=== PATIENT | male | born 1980 | race Caucasian/White ===

== ENCOUNTER 2018-02-17 15:35 | Emergency (ER) | payer OTHER ==
[2018-02-17 17:07] LABS: #Basophils 0.1 thou/uL (0.0-0.2); #Eosinphils 0.1 thou/uL (0.0-0.7); #Lymphocytes 2.4 thou/uL (1.20-3.40); #Monocytes 0.3 thou/uL (0.11-0.59); #Neutrophils 2.5 thou/uL (1.40-6.50); %Basophils 1.5 % (0.0-1.0); %Eosinophils 2.1 % (0.0-10.0); %Lymphocytes 44.8 % (21.0-51.0); %Monocytes 6.1 % (0.0-10.0); %Neutrophils 45.5 % (42.0-75.0); Hemoglobin 14.7 g/dL (14.0-18.0); Mean Corpuscular HGB CONC 35.8 g/dL (32.0-36.0); Mean Corpuscular Hemoglobin 33.7 pg (27.0-31.0); Mean Corpuscular Volume 94.3 fl (80.0-94.0); Platelet Count 146 thou/uL (130-400); RBC Distribution Width 10.8 % (11.5-14.5); Red Blood Cell (RBC) Count 4.36 mill/uL (4.70-6.10); White Blood Cell (WBC) Count 5.4 thou/uL (4.8-10.8)
[2018-02-17] MEDS ORDERED: Ketorolac Tromethamine 30 MG/ML VIAL ONE ×2 (17:26→17:27)
[2018-02-17 17:27] LABS: Anion Gap 20 mmol/L (10-20); BUN (Urea Nitrogen) Less than 4 mg/dL (8.9-20.6); Calc. Creatinine Clearance 0 mL/min (70-130); Calcium 8.8 mg/dL (7.8-10.44); Carbon Dioxide 20 mmol/L (22-29); Chloride 102 mmol/L (98-107); Estimated GFR-MDRD Greater than 90; Glucose 316 mg/dL (70-105); Potassium 3.9 mmol/L (3.5-5.1); Sodium 138 mmol/L (136-145)
[2018-02-17 17:33] LABS: Troponin I Less than 0.010 ng/mL (< 0.028)
--- NOTE | 2018-02-17 17:42 | RAD ---
PORTABLE AP CHEST X-RAY: 02/17/2018 HISTORY: Chest pain. COMPARISON: None available. FINDINGS: The cardiac silhouette and pulmonary vasculature are within normal limits. The lungs are clear. The osseous structures are intact. IMPRESSION: No acute cardiopulmonary process. POS: [facility]
[2018-02-17] MEDS ORDERED: Methocarbamol 500 MG TAB PO SCH (17:45)
== END 2018-02-17 18:57 | disposition home or self-care (01) ==
LOC: ERS 15:35
DX: M62.830 Muscle spasm of back (principal); F41.9 Anxiety disorder, unspecified; M19.90 Unspecified osteoarthritis, unspecified site; E11.9 Type 2 diabetes mellitus without complications; I10 Essential (primary) hypertension; Z79.84 Long term (current) use of oral hypoglycemic drugs; Z79.899 Other long term (current) drug therapy
CPT/HCPCS: 36415; 71045; 80048; 82553; 84484; 85025; 93005; 96372; J1885

== ENCOUNTER 2018-05-16 13:29 | Outpatient (CLI) | payer OTHER | END 2018-05-16 13:30 | disposition home or self-care (01) | LOC: BICRAD 13:29 | PROVIDERS: ATTEND Orthopaedic Surgery | DX: M19.90 Unspecified osteoarthritis, unspecified site (principal); M19.041 Primary osteoarthritis, right hand ==

== ENCOUNTER 2018-10-14 04:37 | Emergency (ER) | payer OTHER ==
[2018-10-14] MEDS ORDERED: Ketorolac Tromethamine 60 MG/2 ML VIAL ONE (05:48)
== END 2018-10-14 05:54 | disposition home or self-care (01) ==
LOC: ERS 04:37
DX: G89.29 Other chronic pain (principal); M54.5 Low back pain; E11.9 Type 2 diabetes mellitus without complications; I10 Essential (primary) hypertension; Z79.84 Long term (current) use of oral hypoglycemic drugs; Z79.899 Other long term (current) drug therapy
CPT/HCPCS: 96372; J1885

== ENCOUNTER 2019-05-07 01:45 | Emergency (ER) | payer OTHER ==
[2019-05-07] MEDS ORDERED: Ondansetron ODT 4 MG TAB ONE (01:52)
[2019-05-07 02:18] LABS: #Basophils 0.1 thou/uL (0.0-0.2); #Eosinphils 0.1 thou/uL (0.0-0.7); #Lymphocytes 2.6 thou/uL (1.20-3.40); #Monocytes 0.9 thou/uL (0.11-0.59); #Neutrophils 7.1 thou/uL (1.40-6.50); %Basophils 0.8 % (0.0-1.0); %Eosinophils 0.5 % (0.0-10.0); %Lymphocytes 24.4 % (21.0-51.0); %Monocytes 8.6 % (0.0-10.0); %Neutrophils 65.7 % (42.0-75.0); Mean Corpuscular HGB CONC 32.7 g/dL (32.0-36.0); Mean Corpuscular Hemoglobin 32.7 pg (27.0-31.0); Platelet Count 195 thou/uL (130-400); RBC Distribution Width 11.9 % (11.5-14.5); White Blood Cell (WBC) Count 10.8 thou/uL (4.8-10.8)
[2019-05-07] MEDS ORDERED: Pantoprazole 40 MG VIAL ONE (02:23)
[2019-05-07] MEDS ORDERED: Ondansetron PF 4 MG/2 ML Vial ONE (02:23)
[2019-05-07 02:53] LABS: ALT (SGPT) 116 U/L (8-55); AST (SGOT) 224 U/L (5-34); Albumin 4.3 g/dL (3.5-5.0); Alkaline Phosphatase 251 U/L (40-150); Anion Gap 28 mmol/L (10-20); BUN (Urea Nitrogen) 5 mg/dL (8.9-20.6); Calc. Creatinine Clearance 0 mL/min (70-130); Calcium 10.5 mg/dL (7.8-10.44); Carbon Dioxide 20 mmol/L (22-29); Chloride 94 mmol/L (98-107); Estimated GFR-MDRD 87; Globulin 5.1 g/dL (2.4-3.5); Glucose 420 mg/dL (70-105); Potassium 3.9 mmol/L (3.5-5.1); Protein, Total 9.4 g/dL (6.0-8.3); Sodium 138 mmol/L (136-145)
[2019-05-07] MEDS ORDERED: Lorazepam 2 MG/ML VIAL ONE (06:51)
--- NOTE | 2019-05-07 07:01 | CT ---
CT ABDOMEN AND PELVIS WITH CONTRAST: Date: 05/07/19 No prior comparison. CLINICAL INDICATION: New onset nausea, vomiting, and abdominal pain. FINDINGS: Mild volume loss is seen at the lung bases. There is a mild nodular contour of the liver. The spleen is mildly enlarged, greater than 14 cm in length. No peripancreatic inflammatory fat stranding or nino ma identified. Moderate distention of the gallbladder is seen, with a slight degree of relative incre ased density at the level of the gallbladder neck, incompletely evaluated. The adrenal glands and kid neys are unremarkable. Moderate retained fecal material in the colon is seen. There is a slight degre e of wall prominence of the unopacified right hemicolon. The unopacified small bowel is not dilated. There is moderate distention of the urinary bladder. No free air or significant ascites. Recanalizati on of the umbilical vein noted. The osseous structures are intact. IMPRESSION: 1. There is moderate distention of the gallbladder with slight internal increased density. Consider gallbladder ultrasound for further evaluation. 2. Findings which indicate a mildly cirrhotic morphology of the liver. There is probable hepatic laurie atosis as well. Borderline splenomegaly and recanalized umbilical vein relate to associated changes o f portal hypertension. Recommend clinical correlation in this regard. Follow-up with gastroenterology consultation would prove useful. 3. Mild wall prominence of the right hemicolon, nonspecific and incompletely evaluated as the bowel is not contrast opacified. Recommend clinical correlation to exclude symptoms of colitis. Clinical fo llow-up also suggested to confirm resolution. POS: [facility]
--- NOTE | 2019-05-07 07:04 | ULT ---
GALLBLADDER ULTRASOUND: Date: 05/07/19 INDICATION: New onset nausea and vomiting, pain. FINDINGS: There is a prominent sized liver with increased hepatic echotexture which can be seen in the setting of fatty infiltration. There are a few dependent low level echoes of the gallbladder which may be on the basis of sludge and/or nonshadowing gravel-like cholelithiasis. The gallbladder wall is borderlin e in size to mildly thickened, slightly greater than 3 mm. The imaged common duct is 3 mm. IMPRESSION: 1. Borderline size/mildly thickened gallbladder wall with subtle, low level internal echoes. Recomme nd clinical correlation to exclude developing signs/symptoms of cholecystitis. 2. No abnormal biliary ductal dilatation. 3. Findings which favor hepatic steatosis and may be correlated with liver function enzymes. POS: [facility]
--- NOTE | 2019-05-07 08:06 | RAD ---
PORTABLE CHEST: Date: 05/07/19 HISTORY: Hematochezia. FINDINGS: Lungs are clear. Heart and mediastinum appear normal. IMPRESSION: No acute findings. POS: [facility]
[2019-05-07] MEDS ORDERED: ISOVUE-370 76%-LOCM 1 ML ONE (10:48)
--- NOTE | 2019-05-10 12:14 | EKG ---
Test Reason : Blood Pressure : / mmHG Vent. Rate : 130 BPM Atrial Rate : 130 BPM P-R Int : 138 ms QRS Dur : 082 ms QT Int : 310 ms P-R-T Axes : 033 -18 020 degrees QTc Int : 456 ms Sinus tachycardia Possible Left atrial enlargement Left ventricular hypertrophy Abnormal ECG Confirmed by RAJNI CRISTINA ([id number]), production editor LYUDMILA ARANDA ([id number]) on 05/10/2019 12:14:04 PM Referred By: Confirmed By:RAJNI CRISTINA
== END 2019-05-07 07:07 | disposition home or self-care (01) ==
LOC: ERS 01:45
DX: R11.2 Nausea with vomiting, unspecified (principal); E11.9 Type 2 diabetes mellitus without complications; I10 Essential (primary) hypertension; F43.10 Post-traumatic stress disorder, unspecified; Z79.899 Other long term (current) drug therapy; Z79.84 Long term (current) use of oral hypoglycemic drugs
CPT/HCPCS: 71045; 74177; 76705; 80053; 84443; 84484; 85025; 93005; 96361; 96372; 96374; 96375; C9113; J0500; J2060; J2405; Q0162; Q9966

== ENCOUNTER 2019-09-22 10:05 | Emergency (ER) | payer OTHER ==
[2019-09-22] MEDS ORDERED: Ketorolac Tromethamine 30 MG/ML VIAL ONE (11:09)
[2019-09-22] MEDS ORDERED: Iopamidol-370 76% 500 ML 1 ML ONE (11:23)
[2019-09-22 11:29] LABS: #Basophils 0.1 thou/uL (0.0-0.2); #Eosinphils 0.1 thou/uL (0.0-0.7); #Lymphocytes 1.4 thou/uL (1.20-3.40); #Monocytes 0.3 thou/uL (0.11-0.59); #Neutrophils 2.3 thou/uL (1.40-6.50); %Basophils 1.5 % (0.0-1.0); %Eosinophils 2.1 % (0.0-10.0); %Lymphocytes 33.5 % (21.0-51.0); %Monocytes 6.5 % (0.0-10.0); %Neutrophils 56.4 % (42.0-75.0); Hemoglobin 14.5 g/dL (14.0-18.0); Mean Corpuscular HGB CONC 33.7 g/dL (32.0-36.0); Mean Platelet Volume 8.4 fL (7.4-10.4); Platelet Count 93 thou/uL (130-400); RBC Distribution Width 12.9 % (11.5-14.5); Red Blood Cell (RBC) Count 4.83 mill/uL (4.70-6.10)
[2019-09-22 11:40] LABS: ALT (SGPT) 51 U/L (8-55); AST (SGOT) 67 U/L (5-34); Albumin 4.7 g/dL (3.5-5.0); Alkaline Phosphatase 101 U/L (40-110); Anion Gap 15 mmol/L (10-20); BUN (Urea Nitrogen) 12 mg/dL (8.9-20.6); Bilirubin, Total 0.9 mg/dL (0.2-1.2); CK (CPK) 83 U/L (30-200); Calc. Creatinine Clearance 0 mL/min (70-130); Calcium 9.7 mg/dL (7.8-10.44); Carbon Dioxide 25 mmol/L (22-29); Chloride 101 mmol/L (98-107); Estimated GFR-MDRD Greater than 90; Globulin 3.5 g/dL (2.4-3.5); Glucose 194 mg/dL (70-105); Protein, Total 8.2 g/dL (6.0-8.3); Sodium 137 mmol/L (136-145)
[2019-09-22 11:44] LABS: Platelet Morphology Comment Appears Decreased; RBC Morphology Normal
[2019-09-22] MEDS ORDERED: Lorazepam 2 MG/ML VIAL ONE (12:00)
[2019-09-22] MEDS ORDERED: Fentanyl 100 MCG/2 ML VIAL ONE (12:00)
--- NOTE | 2019-09-22 12:17 | CT ---
CT ANGIO OF CHEST AND ABDOMEN PERFORMED WITH INTRAVENOUS CONTRAST ENHANCEMENT WITH ED RECONSTRUCTIONS : HISTORY: Chest and back pain. Pain begins in the chest and radiates to the back. This was done per the aorti c dissection. FINDINGS: The lungs are clear of any infiltrative process. No pleural effusions or pulmonary nodules. There is no significant mediastinal, hilar, or axillary adenopathy. The thoracic aorta is normal in caliber. No dissection. CT ANGIO OF ABDOMEN PERFORMED WITH CONTRAST WITH 3D RECONSTRUCTIONS: The liver shows no focal abnormalities. It measures 20.6 cm in length. The spleen is enlarged at ap proximately 15 cm. The pancreas and gallbladder regions are unremarkable other than some slight nodu larity to the gallbladder wall. This may indicate adenomyomatosis. Ultrasound was previously perfor med which did demonstrate some gallbladder wall thickening. Right and left adrenal glands and right and left kidneys are normal. There is no significant periaor tic or mesenteric adenopathy. The abdominal aorta is normal in caliber. No dissection. IMPRESSION: 1. No evidence of aortic aneurysm or dissection. 2. Mild hepatosplenomegaly. 3. Some mild slightly nodular areas of gallbladder wall thickening raising the possibility of adenom yomatosis. POS: [facility]
--- NOTE | 2019-09-26 16:14 | EKG ---
Test Reason : Blood Pressure : / mmHG Vent. Rate : 091 BPM Atrial Rate : 091 BPM P-R Int : 134 ms QRS Dur : 080 ms QT Int : 380 ms P-R-T Axes : 021 -12 002 degrees QTc Int : 467 ms Normal sinus rhythm Minimal voltage criteria for LVH, may be normal variant Borderline ECG Confirmed by RK ISABEL, JERMAIN ([id number]), website/blog editor VALERIY GUTIERREZ ([id number]) on 09/26/2019 4:12:55 PM Referred By: Confirmed By:JERMAIN BECKMAN MD
== END 2019-09-22 12:55 | disposition home or self-care (01) ==
LOC: ERS 10:05
DX: M54.6 Pain in thoracic spine (principal); M25.552 Pain in left hip; I47.1 Supraventricular tachycardia; E11.9 Type 2 diabetes mellitus without complications; I10 Essential (primary) hypertension; M19.90 Unspecified osteoarthritis, unspecified site; F43.10 Post-traumatic stress disorder, unspecified; Z87.442 Personal history of urinary calculi; Z79.84 Long term (current) use of oral hypoglycemic drugs; Z79.899 Other long term (current) drug therapy
CPT/HCPCS: 71275; 72191; 74175; 80053; 82550; 84484; 85025; 93005; 96361; 96374; 96375; J1885; J2060; J3010; Q9967

== ENCOUNTER 2019-10-15 21:05 | Emergency (ER) | payer OTHER ==
[2019-10-15 21:38] LABS: #Basophils 0.1 thou/uL (0.0-0.2); #Lymphocytes 0.7 thou/uL (1.20-3.40); #Monocytes 0.7 thou/uL (0.11-0.59); #Neutrophils 3.5 thou/uL (1.40-6.50); %Basophils 1.1 % (0.0-1.0); %Eosinophils 0.1 % (0.0-10.0); %Lymphocytes 14.3 % (21.0-51.0); %Neutrophils 70.6 % (42.0-75.0); Hemoglobin 13.5 g/dL (14.0-18.0); Mean Corpuscular HGB CONC 33.6 g/dL (32.0-36.0); Mean Corpuscular Hemoglobin 30.3 pg (27.0-31.0); Mean Corpuscular Volume 90.2 fL (78.0-98.0); Mean Platelet Volume 8.1 fL (7.4-10.4); Platelet Count 88 thou/uL (130-400); RBC Distribution Width 13.3 % (11.5-14.5); Red Blood Cell (RBC) Count 4.45 mill/uL (4.70-6.10); White Blood Cell (WBC) Count 4.9 thou/uL (4.8-10.8)
--- NOTE | 2019-10-15 21:39 | RAD ---
Portable chest: HISTORY: Chest pain COMPARISON: none FINDINGS: Lung nunez are clear. Heart and mediastinum appear unremarkable. Vascularity is normal. Visualized osseous structures unremarkable. IMPRESSION: No acute finding
[2019-10-15 21:55] LABS: ALT (SGPT) 65 U/L (8-55); AST (SGOT) 97 U/L (5-34); Albumin 4.6 g/dL (3.5-5.0); Alkaline Phosphatase 110 U/L (40-110); Anion Gap 16 mmol/L (10-20); BUN (Urea Nitrogen) 9 mg/dL (8.9-20.6); Calc. Creatinine Clearance 0 mL/min (70-130); Calcium 10.2 mg/dL (7.8-10.44); Carbon Dioxide 27 mmol/L (22-29); Chloride 96 mmol/L (98-107); Estimated GFR-MDRD 88; Globulin 3.7 g/dL (2.4-3.5); Glucose 163 mg/dL (70-105); Protein, Total 8.3 g/dL (6.0-8.3); Sodium 135 mmol/L (136-145)
[2019-10-15] MEDS ORDERED: HYDROcodone/Acetaminophen 10/325 mg Tablet ONE (22:08)
--- NOTE | 2019-10-15 22:28 | CT ---
CT ABDOMEN AND PELVIS WITHOUT IV CONTRAST: 10/15/19 INDICATIONS: Abdominal pain. Comparison made to recent CT chest and abdomen 09/22/19. FINDINGS: Lung bases clear. Liver, spleen and pancreas unremarkable. Borderline splenomegaly is again noted and unchanged. Kidneys unremarkable. No hydronephrosis. There is a small nonobstructing calculus in the lower pole c ollecting structures of both kidneys. Calculus in both kidneys measure in the 3 mm range. Ureters are normal caliber. Urinary bladder unremarkable. Small bowel loops appear normal. The appendix appears normal. The colon is nondistended and not well evaluated but appears unremarkable. No fluid or adenopathy. IMPRESSION: No acute process identified. POS: [facility]
[2019-10-15 23:02] LABS: Bacteria/HPF None Seen HPF (None Seen); Bilirubin Negative (Negative); Blood, Urine 2+ (Negative); Clarity Clear (Clear); Glucose, Urine (Dipstick) Normal (Negative); Leukocyte Negative Leu/uL (Negative); Nitrite Negative (Negative); Protein, Urine (Dipstick) 50 mg/dL (Neg-Trace); RBC/HPF Greater than 50 HPF (0-3); Squamous Epithelial 0-3 HPF (0-3)
== END 2019-10-15 23:40 | disposition home or self-care (01) ==
LOC: ERS 21:05
DX: E11.40 Type 2 diabetes mellitus with diabetic neuropathy, unspecified (principal); R31.9 Hematuria, unspecified; M54.5 Low back pain; F43.10 Post-traumatic stress disorder, unspecified; E11.9 Type 2 diabetes mellitus without complications; I10 Essential (primary) hypertension; M19.90 Unspecified osteoarthritis, unspecified site; I47.1 Supraventricular tachycardia; Z87.442 Personal history of urinary calculi; Z79.84 Long term (current) use of oral hypoglycemic drugs; Z79.899 Other long term (current) drug therapy; Z79.891 Long term (current) use of opiate analgesic
CPT/HCPCS: 36415; 71045; 74176; 80053; 81003; 81015; 82550; 84484; 85025; 93005; 94760

== ENCOUNTER 2019-12-09 07:55 | Outpatient (CLI) | payer OTHER ==
--- NOTE | 2019-12-09 09:45 | MRI ---
MRI CERVICAL SPINE WITHOUT CONTRAST: Date: 12/09/2019 HISTORY: Cervical disorder at C4-5 level. Neck pain radiating down bilateral hands. FINDINGS: The vertebral body heights and marrow signal are maintained. There are mild uncovertebral hypertrophi c changes without significant neural foraminal stenosis. No focal disc herniation, cord impingement, or compression is seen. The cervical spine cord demonstrates normal course, caliber, and signal, No e vidence of syringomyelia, myelomalacia, or cord edema is seen. There is fluid in the left mastoid air cells. The paraspinal musculature is normal. IMPRESSION: Mild cervical spondylosis. POS: [facility]
--- NOTE | 2019-12-09 09:49 | MRI ---
MRI LUMBAR SPINE WITHOUT CONTRAST: Date: 12/09/2019 HISTORY: Intervertebral disc disorder, low back pain, with numbness and tingling in bilateral feet. COMPARISON: 05/14/2018 from [facility]. FINDINGS: Vertebral body heights and marrow signal are maintained. Conus medullaris ends at L1 level. There is disc desiccation at L4-5 level. A left lateral broad based disc protrusion is again noted at L4-5 lev el with mild annular fissure and encroachment on the left neural foramen. Moderate left-sided neural foraminal stenosis is noted at L4-5 level, which is stable. Mild to moderate neural foraminal stenosi s bilaterally at most other levels is again seen. There are mild degenerative facet changes at multip le levels. IMPRESSION: 1. Stable exam since 05/14/2018. 2. Left lateral and far lateral annular fissure disc protrusion at L4-5 level causing neural foramin al stenosis. 3. Mild to moderate bilateral neural foraminal stenosis at several levels. No evidence of central ca nal stenosis. POS: [facility]
== END 2019-12-09 07:56 | disposition home or self-care (01) ==
LOC: BICMRI 07:55
PROVIDERS: ATTEND Family Medicine
DX: M50.121 Cervical disc disorder at C4-C5 level with radiculopathy (principal); M51.16 Intervertebral disc disorders with radiculopathy, lumbar region; M47.22 Other spondylosis with radiculopathy, cervical region; M48.061 Spinal stenosis, lumbar region without neurogenic claudication
CPT/HCPCS: 72141; 72148

== ENCOUNTER 2022-02-03 13:21 | Emergency (ER) | payer OTHER, SELFPAY ==
[2022-02-03] MEDS ORDERED: Fentanyl 100 MCG/2 ML VIAL ONE ×2 (14:06→16:25)
[2022-02-03] MEDS ORDERED: Ondansetron PF 4 MG/2 ML Vial ONE (14:06)
[2022-02-03] MEDS ORDERED: Ketorolac Tromethamine 30 MG/ML VIAL ONE (14:06)
[2022-02-03] MEDS ORDERED: Lorazepam 2 MG/ML VIAL ONE (14:06)
[2022-02-03 14:19] LABS: #Eosinphils 0.1 thou/uL (0.0-0.7); #Lymphocytes 1.5 thou/uL (1.20-3.40); #Monocytes 0.5 thou/uL (0.11-0.59); #Neutrophils 3.2 thou/uL (1.40-6.50); %Basophils 0.8 % (0.0-1.0); %Eosinophils 1.8 % (0.0-10.0); %Monocytes 9.1 % (0.0-10.0); %Neutrophils 60.4 % (42.0-75.0); Hemoglobin 14.5 g/dL (14.0-18.0); Mean Corpuscular Hemoglobin 29.1 pg (27.0-31.0); Mean Corpuscular Volume 88.3 fL (78.0-98.0); Platelet Count 123 thou/uL (130-400); RBC Distribution Width 13.4 % (11.5-14.5); Red Blood Cell (RBC) Count 4.98 mill/uL (4.70-6.10); White Blood Cell (WBC) Count 5.2 thou/uL (4.8-10.8)
[2022-02-03 14:41] LABS: ALT (SGPT) 39 U/L (8-55); AST (SGOT) 38 U/L (5-34); Albumin 4.6 g/dL (3.5-5.0); Alkaline Phosphatase 89 U/L (40-110); Anion Gap 15 mmol/L (10-20); BUN (Urea Nitrogen) 13 mg/dL (8.9-20.6); Bilirubin, Total 0.8 mg/dL (0.2-1.2); CK (CPK) 115 U/L (30-200); Calc. Creatinine Clearance 0 mL/min (70-130); Calcium 9.7 mg/dL (7.8-10.44); Carbon Dioxide 26 mmol/L (22-29); Chloride 102 mmol/L (98-107); Globulin 3.6 g/dL (2.4-3.5); Glucose 142 mg/dL (70-105); Lipase 39 U/L (8-78); Potassium 4.6 mmol/L (3.5-5.1); Protein, Total 8.2 g/dL (6.0-8.3); Sodium 138 mmol/L (136-145)
[2022-02-03 14:57] LABS: Bacteria/HPF None Seen HPF (None Seen); Bilirubin Negative (Negative); Blood, Urine 2+ (Negative); Clarity Clear (Clear); Glucose, Urine (Dipstick) Normal (Negative); Ketone, Urine Negative (Negative); Leukocyte Negative Leu/uL (Negative); Nitrite Negative (Negative); Protein, Urine (Dipstick) 20 mg/dL (Neg-Trace); RBC/HPF Greater than 50 HPF (0-3); Specific Gravity, Urine 1.023 (1.002-1.036); Squamous Epithelial 0-3 HPF (0-3); Urobilinogen Normal mg/dL (Less than 2); pH, Urine 5.5 (5.0-9.0)
[2022-02-03] MEDS ORDERED: Diazepam 10 MG/2 ML SYRINGE ONE (17:39)
== END 2022-02-03 18:54 | disposition home or self-care (01) ==
LOC: ERS 13:21
DX: N20.0 Calculus of kidney (principal); E11.9 Type 2 diabetes mellitus without complications; I10 Essential (primary) hypertension; M19.90 Unspecified osteoarthritis, unspecified site; Z79.899 Other long term (current) drug therapy; Z79.84 Long term (current) use of oral hypoglycemic drugs
CPT/HCPCS: 74176; 76870; 80053; 81003; 81015; 82550; 83690; 85025; 93976; 96374; 96375; 96376; J1885; J2060; J2405; J3010; J3360

== ENCOUNTER 2022-02-25 03:04 | Emergency (ER) | payer OTHER ==
[2022-02-25] MEDS ORDERED: Lorazepam 2 MG/ML VIAL ONE ×2 (03:23→03:29)
[2022-02-25 03:54] LABS: #Lymphocytes 2.2 thou/uL (1.20-3.40); #Monocytes 1.1 thou/uL (0.11-0.59); %Basophils 0.3 % (0.0-1.0); %Eosinophils 0.2 % (0.0-10.0); %Lymphocytes 13.1 % (21.0-51.0); %Monocytes 6.8 % (0.0-10.0); %Neutrophils 79.6 % (42.0-75.0); Hemoglobin 15.2 g/dL (14.0-18.0); Mean Corpuscular Hemoglobin 28.9 pg (27.0-31.0); Mean Corpuscular Volume 87.6 fL (78.0-98.0); Mean Platelet Volume 7.9 fL (7.4-10.4); Platelet Count 170 thou/uL (130-400); RBC Distribution Width 14.4 % (11.5-14.5); Red Blood Cell (RBC) Count 5.26 mill/uL (4.70-6.10); White Blood Cell (WBC) Count 16.4 thou/uL (4.8-10.8)
[2022-02-25 04:21] LABS: ALT (SGPT) 33 U/L (8-55); AST (SGOT) 34 U/L (5-34); Albumin 4.4 g/dL (3.5-5.0); Alcohol 110 mg/dL (Less than 10); Alkaline Phosphatase 89 U/L (40-110); Anion Gap 28 mmol/L (10-20); BUN (Urea Nitrogen) 9 mg/dL (8.9-20.6); Bilirubin, Total 0.7 mg/dL (0.2-1.2); Calc. Creatinine Clearance 0 mL/min (70-130); Calcium 9.4 mg/dL (7.8-10.44); Carbon Dioxide 14 mmol/L (22-29); Chloride 102 mmol/L (98-107); Globulin 3.5 g/dL (2.4-3.5); Glucose 175 mg/dL (70-105); Potassium 4.1 mmol/L (3.5-5.1); Protein, Total 7.9 g/dL (6.0-8.3); Sodium 140 mmol/L (136-145)
[2022-02-25] MEDS ORDERED: Sucralfate 1 GM/10 ML UDCUP ONE (05:22)
== END 2022-02-25 06:05 | disposition home or self-care (01) ==
LOC: ERS 03:04
DX: S09.90XA Unspecified injury of head, initial encounter (principal); F10.10 Alcohol abuse, uncomplicated; R11.2 Nausea with vomiting, unspecified; W19.XXXA Unspecified fall, initial encounter; E11.9 Type 2 diabetes mellitus without complications; I10 Essential (primary) hypertension; M19.90 Unspecified osteoarthritis, unspecified site
CPT/HCPCS: 36415; 70450; 71045; 72125; 80053; 80307; 84484; 85025; 93005; 96374; J2060

== ENCOUNTER 2022-10-10 19:05 | Emergency (ER) | payer OTHER ==
[2022-10-10] MEDS ORDERED: Ondansetron PF 4 MG/2 ML Vial ONE (19:49)
[2022-10-10] MEDS ORDERED: Dicyclomine 20 MG/2 ML VIAL ONE ×2 (19:49→20:22)
[2022-10-10 20:01] LABS: #Lymphocytes 2.2 thou/uL (1.20-3.40); %Basophils 0.3 % (0.0-1.0); %Eosinophils 0.1 % (0.0-10.0); %Monocytes 8.1 % (0.0-10.0); %Neutrophils 73.5 % (42.0-75.0); Hemoglobin 15.3 g/dL (14.0-18.0); Mean Corpuscular HGB CONC 33.4 g/dL (32.0-36.0); Mean Corpuscular Volume 83.7 fl (78.0-98.0); Mean Platelet Volume 8.6 fL (7.4-10.4); Platelet Count 184 10x3/uL (130-400); RBC Distribution Width 14.5 % (11.5-14.5); Red Blood Cell (RBC) Count 5.49 mill/uL (4.70-6.10); White Blood Cell (WBC) Count 12.2 10x3/uL (4.8-10.8)
[2022-10-10] MEDS ORDERED: Metoclopramide HCl 10 MG/2 ML VIAL ONE (20:20)
[2022-10-10] MEDS ORDERED: diphenhydrAMINE 12.5 MG/5 ML UDCUP ONE (20:20)
[2022-10-10] MEDS ORDERED: Famotidine/PF 20 mg/2ml Vial ONE (20:20)
[2022-10-10] MEDS ORDERED: diphenhydrAMINE 50 MG/ML VIAL ONE (20:22)
[2022-10-10 20:24] LABS: ALT (SGPT) 48 U/L (8-55); AST (SGOT) 50 U/L (5-34); Albumin 4.6 g/dL (3.5-5.0); Alkaline Phosphatase 91 U/L (40-110); Anion Gap 22 mmol/L (10-20); BUN (Urea Nitrogen) 12 mg/dL (8.9-20.6); Bilirubin, Total 1.4 mg/dL (0.2-1.2); CK (CPK) 578 U/L (30-200); Calc. Creatinine Clearance 0 mL/min (70-130); Calcium 9.8 mg/dL (7.8-10.44); Carbon Dioxide 18 mmol/L (22-29); Chloride 97 mmol/L (98-107); Estimated GFR 73; Globulin 3.5 g/dL (2.4-3.5); Glucose 278 mg/dL (70-105); Lipase 20 U/L (8-78); Magnesium 1.4 mg/dL (1.6-2.6); Potassium 3.4 mmol/L (3.5-5.1); Protein, Total 8.1 g/dL (6.0-8.3); Sodium 134 mmol/L (136-145)
[2022-10-10 21:01] LABS: Actual Bicarbonate (HCO3v) 22 mEq/L (22-28); Analyzer IN Cardio ER; Base Excess 1.1 mEq/L (-2.0 to +3.0); Calcium, Ionized (venous) 1.08 mmol/L (1.16-1.32); Chloride (VBG) 96 mmol/L (98-106); Potassium (VBG) 3.64 mmol/L (3.70-5.30); Sodium 132.2 mmol/L (133-146); pH (venous) 7.55 (7.32-7.43)
[2022-10-10] MEDS ORDERED: Potassium Chloride 20 MEQ TAB ONE (21:16)
[2022-10-10] MEDS ORDERED: Magnesium 2 GM/50 ML BAG (IN WATER) ONE (21:16)
[2022-10-10 21:36] LABS: Phosphorus 1.5 mg/dL (2.3-4.7)
[2022-10-10 21:41] LABS: SARS-CoV-2 NAA Rapid Test Not Detected (NotDetected)
[2022-10-10 21:42] LABS: Bilirubin Negative (Negative); Blood, Urine Negative (Negative); Clarity Clear (Clear); Glucose, Urine (Dipstick) Normal (Negative); Ketone, Urine 20 mg/dL (Negative); Leukocyte Negative Leu/uL (Negative); Nitrite Negative (Negative); Protein, Urine (Dipstick) Negative (Neg-Trace); Specific Gravity, Urine 1.009 (1.002-1.036); Urobilinogen Normal mg/dL (Less than 2); pH, Urine 5.5 (5.0-9.0)
[2022-10-10] MEDS ORDERED: K-Phos Neutral 250 MG TAB PO SCH (22:15)
[2022-10-10 22:59] LABS: Lactic Acid 1.8 mmol/L (0.5-2.2)
[2022-10-10 23:45] LABS: Anion Gap 15 mmol/L (10-20); BUN (Urea Nitrogen) 12 mg/dL (8.9-20.6); Calc. Creatinine Clearance 0 mL/min (70-130); Calcium 9.4 mg/dL (7.8-10.44); Carbon Dioxide 28 mmol/L (22-29); Chloride 99 mmol/L (98-107); Estimated GFR 94; Glucose 193 mg/dL (70-105); Potassium 3.6 mmol/L (3.5-5.1); Sodium 138 mmol/L (136-145)
== END 2022-10-11 00:31 | disposition home or self-care (01) ==
LOC: ERS 19:05
DX: E86.0 Dehydration (principal); R11.2 Nausea with vomiting, unspecified; E87.6 Hypokalemia; E83.42 Hypomagnesemia; E83.39 Other disorders of phosphorus metabolism; E11.9 Type 2 diabetes mellitus without complications; I10 Essential (primary) hypertension; Z20.822 Contact with and (suspected) exposure to COVID-19
CPT/HCPCS: 36415; 36416; 71045; 76705; 80053; 81003; 82010; 82550; 82805; 83605; 83690; 83735; 84100; 84484; 85025; 93005; 94760; 96372; 96374; 96375; J1200; J2405; J2765; J3475; Q0163; S0028

== ENCOUNTER 2022-12-07 21:52 | Inpatient (IN) | payer OTHER ==
[~2022-12-07 21:52] MED LIST: Iopamidol-370 76% 500 ML 1 ML ONE
[2022-12-07] MEDS ORDERED: Ondansetron PF 4 MG/2 ML Vial ONE (22:03)
[2022-12-07 22:29] LABS: Actual Bicarbonate (HCO3v) 25 mEq/L (22-28); Calcium, Ionized (venous) 1.09 mmol/L (1.16-1.32); Chloride (VBG) 98 mmol/L (98-106); Hemoglobin (Hb) 15.8 g/dL (13.2-17.3); Potassium (VBG) 3.89 mmol/L (3.70-5.30); Sodium 137.4 mmol/L (133-146); pH (venous) 7.53 (7.32-7.43)
[2022-12-07 22:33] LABS: #Basophils 0.1 thou/uL (0.0-0.2); #Eosinphils 0.1 thou/uL (0.0-0.7); #Lymphocytes 1.7 thou/uL (1.20-3.40); #Monocytes 0.5 thou/uL (0.11-0.59); %Basophils 0.5 % (0.0-1.0); %Eosinophils 0.9 % (0.0-10.0); %Lymphocytes 16.4 % (21.0-51.0); %Monocytes 5.2 % (0.0-10.0); %Neutrophils 77.1 % (42.0-75.0); Hemoglobin 15.3 g/dL (14.0-18.0); Mean Corpuscular HGB CONC 34.2 g/dL (32.0-36.0); Mean Corpuscular Hemoglobin 28.9 pg (27.0-31.0); Mean Corpuscular Volume 84.7 fl (78.0-98.0); Mean Platelet Volume 8.9 fL (7.4-10.4); Platelet Count 123 10x3/uL (130-400); RBC Distribution Width 13.9 % (11.5-14.5); Red Blood Cell (RBC) Count 5.28 mill/uL (4.70-6.10); White Blood Cell (WBC) Count 10.4 10x3/uL (4.8-10.8)
[2022-12-07] MEDS ORDERED: Morphine 4 MG/ML VIAL ONE (22:39)
[2022-12-07 22:48] LABS: Phosphorus 1.7 mg/dL (2.3-4.7)
[2022-12-07 22:50] LABS: ALT (SGPT) 34 U/L (8-55); AST (SGOT) 27 U/L (5-34); Albumin 4.6 g/dL (3.5-5.0); Alkaline Phosphatase 95 U/L (40-110); Anion Gap 22 mmol/L (10-20); BUN (Urea Nitrogen) 11 mg/dL (8.9-20.6); Bilirubin, Total 0.9 mg/dL (0.2-1.2); Calc. Creatinine Clearance 0 mL/min (70-130); Calcium 10.3 mg/dL (7.8-10.44); Carbon Dioxide 20 mmol/L (22-29); Chloride 99 mmol/L (98-107); Estimated GFR 74; Globulin 3.5 g/dL (2.4-3.5); Glucose 301 mg/dL (70-105); Lipase 48 U/L (8-78); Magnesium 1.3 mg/dL (1.6-2.6); Potassium 3.8 mmol/L (3.5-5.1); Protein, Total 8.1 g/dL (6.0-8.3); Sodium 137 mmol/L (136-145)
[2022-12-07] MEDS ORDERED: Metoclopramide HCl 10 MG/2 ML VIAL ONE (23:48)
[2022-12-08] MEDS ORDERED: Magnesium 2 GM/50 ML BAG (IN WATER) ONE (00:27)
[2022-12-08 01:48] LABS: Lactic Acid 3.9 mmol/L (0.5-2.2)
[2022-12-08] MEDS ORDERED: Famotidine/PF 20 mg/2ml Vial ONE (01:53)
[2022-12-08] MEDS ORDERED: Dicyclomine 20 MG/2 ML VIAL ONE (01:53)
[2022-12-08] MEDS ORDERED: Ondansetron PF 4 MG/2 ML Vial ONE (01:53)
[2022-12-08] MEDS ORDERED: Promethazine HCl 25 MG in Sodium Chloride 0.9% 50 ML IVPB SCH (02:45)
[2022-12-08] MEDS ORDERED: Acetaminophen 500 MG TAB PO PRN (03:34)
[2022-12-08] MEDS ORDERED: Dextrose 50% Abboject 50 ML SYRINGE SLOW IVP PRN (03:38)
[2022-12-08] MEDS ORDERED: Dextrose 5% in Water 1,000 ML IV PRN (03:38)
[2022-12-08] MEDS ORDERED: HumaLOG 300 UNITS/3 ML VIAL SC PRN (03:38)
[2022-12-08] MEDS ORDERED: Scopolamine 1.5 mg/72 hour Patch TD SCH (03:45)
[2022-12-08] MEDS ORDERED: Pantoprazole 40 MG VIAL IVP SCH (03:45)
[2022-12-08] MEDS ORDERED: PHOS-NAK 1 PKT PACK PO SCH (04:00)
[2022-12-08] MEDS ORDERED: Ondansetron PF 4 MG/2 ML Vial IVP PRN ×2 (04:00→06:00)
[2022-12-08 04:04] LABS: #Lymphocytes 0.7 thou/uL (1.20-3.40); #Monocytes 0.2 thou/uL (0.11-0.59); #Neutrophils 5.6 thou/uL (1.40-6.50); %Basophils 0.2 % (0.0-1.0); %Eosinophils 0.2 % (0.0-10.0); %Lymphocytes 10.5 % (21.0-51.0); %Monocytes 2.8 % (0.0-10.0); %Neutrophils 86.3 % (42.0-75.0); Hemoglobin 13.3 g/dL (14.0-18.0); Mean Corpuscular HGB CONC 34.4 g/dL (32.0-36.0); Mean Corpuscular Volume 84.4 fl (78.0-98.0); Mean Platelet Volume 9.3 fL (7.4-10.4); Platelet Count 87 10x3/uL (130-400); RBC Distribution Width 13.7 % (11.5-14.5); Red Blood Cell (RBC) Count 4.59 mill/uL (4.70-6.10); White Blood Cell (WBC) Count 6.5 10x3/uL (4.8-10.8)
[2022-12-08 04:16] LABS: Hemoglobin A1c 8.7 % (4.0-6.0)
[2022-12-08] MEDS ORDERED: Sodium Chloride 0.9% 1,000 ML IV SCH (04:30)
[2022-12-08 04:33] LABS: Lactic Acid 2.2 mmol/L (0.5-2.2)
[2022-12-08 04:35] LABS: ALT (SGPT) 33 U/L (8-55); AST (SGOT) 28 U/L (5-34); Alkaline Phosphatase 83 U/L (40-110); Anion Gap 16 mmol/L (10-20); BUN (Urea Nitrogen) 11 mg/dL (8.9-20.6); Calc. Creatinine Clearance 0 mL/min (70-130); Calcium 9.1 mg/dL (7.8-10.44); Carbon Dioxide 20 mmol/L (22-29); Chloride 101 mmol/L (98-107); Estimated GFR 95; Globulin 3.1 g/dL (2.4-3.5); Glucose 306 mg/dL (70-105); Protein, Total 7.1 g/dL (6.0-8.3); Sodium 133 mmol/L (136-145)
[2022-12-08] MEDS: HumaLOG 300 UNITS/3 ML VIAL SC PRN ×2 (06:08→16:50)
[2022-12-08] MEDS: Metoclopramide HCl 10 MG/2 ML VIAL IVP SCH ×3 (06:09→22:11)
[2022-12-08 06:46] VITALS: BMI 34.7
[2022-12-08] MEDS: Pantoprazole 40 MG VIAL IVP SCH (08:29)
[2022-12-08] MEDS: Insulin Glargine 30 UNITS/0.3 ML VIAL SC SCH (08:33)
[2022-12-08] MEDS: Sodium Chloride 0.9% 1,000 ML IV SCH ×3 (08:36→21:08)
[2022-12-08 09:55] LABS: Amphetamine Not Detected (NotDetected); Barbiturates Screen Not Detected (NotDetected); Benzodiazepine Screen Not Detected (NotDetected); Cocaine Metabolite Screen Not Detected (NotDetected); Methadone Not Detected (NotDetected); Methamphetamine Not Detected (NotDetected); Opiate Screen Detected (NotDetected); Oxycodone Screen Not Detected (NotDetected); Phencyclidine (PCP) Not Detected (NotDetected); THC/Cannabinoid Screen Detected (NotDetected); Tricyclic Screen Not Detected (NotDetected)
[2022-12-08] MEDS ORDERED: FLU VACC QS2022-23(6MOS UP)/PF 60 MCG/0.5 ML SYRINGE IM ONE (14:00)
[2022-12-08 16:55] LABS: Anion Gap 11 mmol/L (10-20); BUN (Urea Nitrogen) 9 mg/dL (8.9-20.6); Calc. Creatinine Clearance 154 mL/min (70-130); Calcium 8.9 mg/dL (7.8-10.44); Carbon Dioxide 24 mmol/L (22-29); Chloride 104 mmol/L (98-107); Estimated GFR 108; Glucose 227 mg/dL (70-105); Potassium 3.4 mmol/L (3.5-5.1); Sodium 136 mmol/L (136-145)
[2022-12-08] MEDS: Gabapentin 300 MG CAP PO SCH (21:08)
[2022-12-09] MEDS: Sodium Chloride 0.9% 1,000 ML IV SCH ×2 (00:13→05:14)
[2022-12-09] MEDS: Metoclopramide HCl 10 MG/2 ML VIAL IVP SCH (05:09)
[2022-12-09 05:21] VITALS: BP 109/65
[2022-12-09 06:30] LABS: #Eosinphils 0.1 thou/uL (0.0-0.7); #Lymphocytes 1.9 thou/uL (1.20-3.40); #Monocytes 0.5 thou/uL (0.11-0.59); #Neutrophils 3.4 thou/uL (1.40-6.50); %Basophils 0.5 % (0.0-1.0); %Lymphocytes 32.7 % (21.0-51.0); %Monocytes 8.7 % (0.0-10.0); Mean Corpuscular HGB CONC 34.8 g/dL (32.0-36.0); Mean Corpuscular Hemoglobin 29.6 pg (27.0-31.0); Mean Corpuscular Volume 85.1 fl (78.0-98.0); Platelet Count 92 10x3/uL (130-400); Red Blood Cell (RBC) Count 4.39 mill/uL (4.70-6.10); White Blood Cell (WBC) Count 5.9 10x3/uL (4.8-10.8)
[2022-12-09 07:37] LABS: ALT (SGPT) 28 U/L (8-55); AST (SGOT) 26 U/L (5-34); Albumin 3.8 g/dL (3.5-5.0); Alkaline Phosphatase 73 U/L (40-110); Bilirubin, Total 0.7 mg/dL (0.2-1.2); Calcium 8.7 mg/dL (7.8-10.44); Carbon Dioxide 23 mmol/L (22-29)
[2022-12-09 07:38] LABS: Calc. Creatinine Clearance 155 mL/min (70-130); Chloride 107 mmol/L (98-107); Estimated GFR 108; Globulin 2.9 g/dL (2.4-3.5); Glucose 177 mg/dL (70-105); Potassium 3.4 mmol/L (3.5-5.1)
[2022-12-09 07:39] LABS: BUN (Urea Nitrogen) 8 mg/dL (8.9-20.6); Protein, Total 6.7 g/dL (6.0-8.3); Sodium 139 mmol/L (136-145)
[2022-12-09] MEDS ORDERED: Potassium Chloride 20 MEQ TAB PO SCH (07:45)
[2022-12-09 07:54] LABS: Phosphorus 3.3 mg/dL (2.3-4.7)
[2022-12-09] MEDS ORDERED: PROPOFOL 200 MG/20 ML VIAL ONE (08:06)
[2022-12-09] MEDS ORDERED: Lidocaine 1% PF 5 ML VIAL ONE (08:06)
[2022-12-09] MEDS: Gabapentin 300 MG CAP PO SCH (09:18)
[2022-12-09] MEDS: Insulin Glargine 30 UNITS/0.3 ML VIAL SC SCH (09:19)
[2022-12-09] MEDS: Pantoprazole 40 MG VIAL IVP SCH (09:40)
[2022-12-09 09:43] VITALS: TEMP 98.2
[2022-12-09 10:10] LABS: Iron Binding Capacity, Total 385 mcg/dL (261-462)
[2022-12-09 10:20] LABS: Ferritin 39.57 ng/mL (22-322)
[2022-12-09 10:58] LABS: HBCM Index 0.09 S/CO (0-0.79); HBSAg Index 0.24 S/CO (0-0.99); Hep A IgM AB Non-Reactive (NonReactive); Hep A IgM S/CO 0.25 S/CO (0-0.79); Hep B Surf Ag Non-Reactive S/CO (NonReactive); Hep C IgG Ab Non-Reactive (NonReactive); Hep C Index 0.14 S/CO (0-0.79); Hepatitis B Core IgM Abs Non-Reactive (NonReactive)
[2022-12-09 11:45] LABS: Iron 135 ug/dL (65-175)
[2022-12-12 12:32] LABS: ANA Symphony (Qualitative) Negative (Negative); ANA Symphony (Quantitative) 0.2 Ratio (< 0.7 Negative)
[2022-12-12 12:41] LABS: EliA Vaculitis New Method **** NEW METHOD ****; Mitochondrial Ab 1.1 U/mL (<4 Negative)
== END 2022-12-09 09:44 | disposition home or self-care (01) | DRG 639 ==
LOC: ERS 21:52 → T4-A 12-08 03:32 → OBSVTOIN 12-08 12:30
PROVIDERS: ADMIT Internal Medicine; ATTEND Internal Medicine
PROC: 0DJ08ZZ Inspection of Upper Intestinal Tract, Via Natural or Artificial Opening Endoscopic (ICD-10-PCS; principal; 2022-12-09)
DX: E11.10 Type 2 diabetes mellitus with ketoacidosis without coma (principal); I10 Essential (primary) hypertension; G89.29 Other chronic pain; F43.10 Post-traumatic stress disorder, unspecified; N20.0 Calculus of kidney; K74.60 Unspecified cirrhosis of liver; E86.0 Dehydration; E83.42 Hypomagnesemia; D69.6 Thrombocytopenia, unspecified; E83.39 Other disorders of phosphorus metabolism; E11.42 Type 2 diabetes mellitus with diabetic polyneuropathy; Z20.822 Contact with and (suspected) exposure to COVID-19; Z79.899 Other long term (current) drug therapy; Z91.018 Allergy to other foods; Z98.890 Other specified postprocedural states; Z87.891 Personal history of nicotine dependence
CPT/HCPCS: 36415; 36416; 74177; 78264; 80053; 80074; 80306; 82010; 82103; 82105; 82390; 82728; 82805; 83036; 83516; 83540; 83550; 83605; 83690; 83735; 84100; 84484; 85025; 86015; 86038; 86225; 93005; 96361; 96365; 96367; 96372; 96374; 96375; 96376; A9541; C9113; G0378; J1815; J2270; J2405; J2550; J2704; J2765; J3475; J7050; Q9967; S0028; U0003; U0005

== ENCOUNTER 2023-09-23 01:23 | Inpatient (IN) | payer OTHER ==
[2023-09-23] MEDS ORDERED: Morphine 4 MG/ML VIAL ONE (01:56)
[2023-09-23] MEDS ORDERED: Metoclopramide HCl 10 MG/2 ML VIAL ONE (01:56)
[2023-09-23 02:15] LABS: #Monocytes 0.4 thou/uL (0.11-0.59); #Neutrophils 8.7 thou/uL (1.40-6.50); %Basophils 0.3 % (0.0-1.0); %Monocytes 3.6 % (0.0-10.0); %Neutrophils 84.7 % (42.0-75.0); Hematocrit 44.6 % (42.0-52.0); Hemoglobin 14.9 g/dL (14.0-18.0); Mean Corpuscular HGB CONC 33.4 g/dL (32.0-36.0); Mean Corpuscular Hemoglobin 26.2 pg (27.0-31.0); Mean Corpuscular Volume 78.5 fl (78.0-98.0); Mean Platelet Volume 10.3 fL (7.4-10.4); Platelet Count 208 10x3/uL (130-400); RBC Distribution Width 15.2 % (11.5-14.5); Red Blood Cell (RBC) Count 5.68 mill/uL (4.70-6.10); White Blood Cell (WBC) Count 10.3 10x3/uL (4.8-10.8)
[2023-09-23 02:17] LABS: Analyzer IN Cardio ER; Base Excess -2.7 mEq/L (-2.0 to +3.0); Calcium, Ionized (venous) 1.05 mmol/L (1.16-1.32); Chloride (VBG) 95 mmol/L (98-106); Hematocrit-VBG 46 % (42.0-52.0); Hemoglobin (Hb) 15.7 g/dL (13.2-17.3); Potassium (VBG) 3.62 mmol/L (3.70-5.30); Sodium 136 mmol/L (133-146); pH (venous) 7.543 (7.32-7.43)
[2023-09-23] MEDS ORDERED: Magnesium 2 GM/50 ML BAG (IN WATER) ONE (02:24)
[2023-09-23] MEDS ORDERED: Famotidine/PF 20 mg/2ml Vial ONE (02:25)
[2023-09-23 02:39] LABS: Troponin I Less than 0.010 ng/mL (< 0.028)
[2023-09-23 02:47] LABS: ALT (SGPT) 48 U/L (8-55); AST (SGOT) 38 U/L (5-34); Albumin 4.7 g/dL (3.5-5.0); Alkaline Phosphatase 99 U/L (40-110); Anion Gap 28 mmol/L (10-20); BUN (Urea Nitrogen) 12 mg/dL (8.9-20.6); Bilirubin, Total 1.5 mg/dL (0.2-1.2); Calc. Creatinine Clearance 0 mL/min (70-130); Calcium 9.7 mg/dL (7.8-10.44); Carbon Dioxide 16 mmol/L (22-29); Chloride 95 mmol/L (98-107); Estimated GFR 81; Globulin 3.6 g/dL (2.4-3.5); Glucose 191 mg/dL (70-105); Lipase 27 U/L (8-78); Potassium 3.6 mmol/L (3.5-5.1); Protein, Total 8.3 g/dL (6.0-8.3); Sodium 135 mmol/L (136-145)
[2023-09-23] MEDS ORDERED: Acetaminophen 325 MG TAB PO PRN (03:42)
[2023-09-23] MEDS ORDERED: Ondansetron PF 4 MG/2 ML Vial IVP PRN (03:42)
[2023-09-23] MEDS ORDERED: Sodium Chloride 0.9% 1,000 ML IV SCH (03:45)
[2023-09-23] MEDS ORDERED: HumaLOG 300 UNITS/3 ML VIAL SC PRN ×2 (03:46)
[2023-09-23] MEDS ORDERED: Dextrose 5% in Water 1,000 ML IV PRN (03:46)
[2023-09-23] MEDS ORDERED: Dextrose 50% Abboject 50 ML SYRINGE SLOW IVP PRN (03:46)
[2023-09-23] MEDS ORDERED: Glucagon 1 MG/ML KIT IM PRN (03:46)
[2023-09-23 04:30] LABS: Acetaminophen Less than 10 mcg/mL (10.0-30.0); Alcohol Less than 10.0 mg/dL (Less than 10); Magnesium 2.1 mg/dL (1.6-2.6); Salicylate Less than 8.0 mg/dL (15.0-30.0)
[2023-09-23 04:56] VITALS: BMI 34.2
[2023-09-23 05:24] LABS: Hemoglobin A1c 7.9 % (4.0-6.0)
[2023-09-23 05:25] LABS: Lactic Acid 0.9 mmol/L (0.5-2.2)
[2023-09-23] MEDS: Lactated Ringer's 1,000 ML IV SCH ×3 (05:30→23:27)
[2023-09-23 06:35] LABS: Lactic Acid 0.7 mmol/L (0.5-2.2)
[2023-09-23 06:38] LABS: Anion Gap 18 mmol/L (10-20); BUN (Urea Nitrogen) 9 mg/dL (8.9-20.6); Calc. Creatinine Clearance 158 mL/min (70-130); Calcium 8.7 mg/dL (7.8-10.44); Carbon Dioxide 20 mmol/L (22-29); Chloride 102 mmol/L (98-107); Estimated GFR 110; Glucose 158 mg/dL (70-105); Potassium 3.8 mmol/L (3.5-5.1); Sodium 136 mmol/L (136-145)
[2023-09-23] MEDS ORDERED: Ondansetron PF 4 MG/2 ML Vial ONE (07:26)
[2023-09-23] MEDS ORDERED: Pantoprazole 40 MG VIAL ONE (07:27)
[2023-09-23] MEDS: Pantoprazole 40 MG VIAL IVP SCH (07:33)
[2023-09-23] MEDS ORDERED: Iopamidol-370 76% 500 ML MDV (1 ML CHARGE) ONE (11:26)
[2023-09-24 07:18] LABS: #Monocytes 0.5 thou/uL (0.11-0.59); #Neutrophils 2.4 thou/uL (1.40-6.50); %Basophils 0.9 % (0.0-1.0); %Eosinophils 0.9 % (0.0-10.0); %Lymphocytes 31.4 % (21.0-51.0); %Monocytes 10.8 % (0.0-10.0); %Neutrophils 55.8 % (42.0-75.0); Hematocrit 38.9 % (42.0-52.0); Hemoglobin 12.8 g/dL (14.0-18.0); Mean Corpuscular HGB CONC 32.9 g/dL (32.0-36.0); Mean Corpuscular Hemoglobin 26.3 pg (27.0-31.0); Mean Platelet Volume 10.6 fL (7.4-10.4); Platelet Count 116 10x3/uL (130-400); RBC Distribution Width 15.6 % (11.5-14.5); Red Blood Cell (RBC) Count 4.86 mill/uL (4.70-6.10); White Blood Cell (WBC) Count 4.4 10x3/uL (4.8-10.8)
[2023-09-24 07:40] LABS: Anion Gap 12 mmol/L (10-20); BUN (Urea Nitrogen) 6 mg/dL (8.9-20.6); Calc. Creatinine Clearance 168 mL/min (70-130); Calcium 8.7 mg/dL (7.8-10.44); Carbon Dioxide 26 mmol/L (22-29); Chloride 106 mmol/L (98-107); Estimated GFR 112; Glucose 141 mg/dL (70-105); Potassium 3.2 mmol/L (3.5-5.1); Sodium 141 mmol/L (136-145)
[2023-09-24] MEDS: Pantoprazole 40 MG VIAL IVP SCH (08:56)
[2023-09-24] MEDS: Lactated Ringer's 1,000 ML IV SCH ×2 (08:57→17:31)
[2023-09-24] MEDS ORDERED: Ketorolac Tromethamine 30 MG/ML VIAL IVP SCH (09:30)
[2023-09-24] MEDS: HYDROcodone/Acetaminophen 7.5/325 mg Tablet PO PRN ×2 (11:54→17:31)
[2023-09-24] MEDS ORDERED: Potassium Chloride 20 MEQ TAB PO SCH (14:00)
[2023-09-24] MEDS: Propranolol 10 MG TAB PO SCH ×2 (14:32→20:07)
[2023-09-24] MEDS: Methocarbamol 500 MG TAB PO SCH ×2 (14:32→20:06)
[2023-09-24 15:42] LABS: Bacteria/HPF None Seen HPF (None Seen); Bilirubin Negative (Negative); Blood, Urine Negative (Negative); CAUTI Indications for Culture Pelvic or flank pain; Clarity Clear (Clear); Glucose, Urine (Dipstick) 500 mg/dL (Negative); Ketone, Urine Trace mg/dL (Negative); Leukocyte 25 Leu/uL (Negative); Nitrite Negative (Negative); Protein, Urine (Dipstick) Negative (Neg-Trace); RBC/HPF 0-3 HPF (0-3); Squamous Epithelial None Seen HPF (0-3); Urobilinogen Normal mg/dL (Less than 2)
[2023-09-24 15:47] LABS: Urine Culture Reflex No No
[2023-09-24] MEDS: QUEtiapine 25 MG TAB PO SCH ×2 (17:31→22:23)
[2023-09-24] MEDS: Morphine 2 MG/ML VIAL SLOW IVP PRN ×2 (18:35→22:23)
[2023-09-24] MEDS ORDERED: Prazosin HCl 1 MG CAP PO SCH (21:00)
[2023-09-24] MEDS ORDERED: Sertraline 100 MG TAB PO SCH (21:00)
[2023-09-24] MEDS ORDERED: Rosuvastatin 10 MG TAB PO SCH (21:00)
[2023-09-25] MEDS: Morphine 2 MG/ML VIAL SLOW IVP PRN ×2 (02:54→08:44)
[2023-09-25 06:48] LABS: #Eosinphils 0.1 thou/uL (0.0-0.7); #Monocytes 0.3 thou/uL (0.11-0.59); #Neutrophils 1.4 thou/uL (1.40-6.50); %Basophils 0.6 % (0.0-1.0); %Eosinophils 2.2 % (0.0-10.0); %Monocytes 9.5 % (0.0-10.0); %Neutrophils 43.4 % (42.0-75.0); Hematocrit 37.2 % (42.0-52.0); Hemoglobin 12.1 g/dL (14.0-18.0); Mean Corpuscular HGB CONC 32.5 g/dL (32.0-36.0); Mean Corpuscular Hemoglobin 26.5 pg (27.0-31.0); Mean Corpuscular Volume 81.6 fl (78.0-98.0); Mean Platelet Volume 9.9 fL (7.4-10.4); Platelet Count 95 10x3/uL (130-400); RBC Distribution Width 15.5 % (11.5-14.5); Red Blood Cell (RBC) Count 4.56 mill/uL (4.70-6.10); White Blood Cell (WBC) Count 3.2 10x3/uL (4.8-10.8)
[2023-09-25 07:18] LABS: Anion Gap 11 mmol/L (10-20); BUN (Urea Nitrogen) 7 mg/dL (8.9-20.6); Calc. Creatinine Clearance 181 mL/min (70-130); Carbon Dioxide 27 mmol/L (22-29); Chloride 104 mmol/L (98-107); Estimated GFR 114; Glucose 131 mg/dL (70-105); Potassium 3.4 mmol/L (3.5-5.1); Sodium 139 mmol/L (136-145)
[2023-09-25 08:24] VITALS: BP 127/76; TEMP 98
[2023-09-25] MEDS ORDERED: SUMAtriptan Succinate 50 MG TAB PO PRN (08:37)
[2023-09-25] MEDS: Propranolol 10 MG TAB PO SCH (08:38)
[2023-09-25] MEDS: Methocarbamol 500 MG TAB PO SCH (08:38)
[2023-09-25] MEDS ORDERED: Losartan 25 MG TAB PO SCH (09:00)
[2023-09-25] MEDS: HYDROcodone/Acetaminophen 7.5/325 mg Tablet PO PRN (09:28)
== END 2023-09-25 11:05 | disposition home or self-care (01) | DRG 392 ==
LOC: ERS 01:23 → ERHOLD 03:36 → T4-A 13:17 → OBSVTOIN 09-24 14:39
PROVIDERS: ADMIT Internal Medicine; ATTEND Internal Medicine
DX: A08.4 Viral intestinal infection, unspecified (principal); E87.20 Acidosis, unspecified; R55 Syncope and collapse; I10 Essential (primary) hypertension; G89.29 Other chronic pain; M54.9 Dorsalgia, unspecified; Z79.899 Other long term (current) drug therapy; Z88.8 Allergy status to other drugs, medicaments and biological substances; Z98.890 Other specified postprocedural states; Z80.3 Family history of malignant neoplasm of breast; Z87.891 Personal history of nicotine dependence; E11.42 Type 2 diabetes mellitus with diabetic polyneuropathy; K74.60 Unspecified cirrhosis of liver; Z83.3 Family history of diabetes mellitus
CPT/HCPCS: 36415; 36416; 74177; 80048; 80053; 80307; 81001; 82010; 82805; 83036; 83605; 83690; 83735; 84484; 85025; 87040; 93005; 96361; 96365; 96366; 96375; 96376; C9113; G0378; J1650; J1885; J2270; J2272; J2405; J2765; J3475; J7120; Q9967; S0028

== ENCOUNTER 2025-06-05 06:26 | Day surgery (SDC) | payer OTHER ==
[2025-06-04 15:11] VITALS: BMI 34.8
[2025-06-05] MEDS ORDERED: PROPOFOL 40 ML ONE (07:47)
[2025-06-05] MEDS ORDERED: PROPOFOL 20 ML ONE (08:29)
[2025-06-05] MEDS ORDERED: fentaNYL PF 100 MCG/2 ML SYRINGE ONE (08:30)
== END 2025-06-05 09:40 | disposition home or self-care (01) ==
LOC: SDC 06:26
PROVIDERS: ATTEND Internal Medicine Gastroenterology
DX: Z12.11 Encounter for screening for malignant neoplasm of colon (principal); K75.81 Nonalcoholic steatohepatitis (NASH); K21.9 Gastro-esophageal reflux disease without esophagitis; K52.9 Noninfective gastroenteritis and colitis, unspecified; E11.9 Type 2 diabetes mellitus without complications; E78.00 Pure hypercholesterolemia, unspecified; I10 Essential (primary) hypertension; Z79.899 Other long term (current) drug therapy; Z79.84 Long term (current) use of oral hypoglycemic drugs; Z91.018 Allergy to other foods; Z91.048 Other nonmedicinal substance allergy status; Z87.891 Personal history of nicotine dependence
CPT/HCPCS: 36416; J2704